=== PATIENT | female | born 1950 | race Hispanic/Latino ===

== ENCOUNTER → 2019-01-23 | Outpatient (CLI) | payer MEDICARE | END | disposition home or self-care (01) | LOC: OIH 14:48 | PROVIDERS: ATTEND Internal Medicine | DX: M06.4 Inflammatory polyarthropathy (principal) | CPT/HCPCS: 73130; 73630 ==

== ENCOUNTER 2020-08-10 06:10 | Day surgery (SDC) | payer OTHER ==
[2020-08-09 13:25] VITALS: BP 179/89
[2020-08-10] VITALS (16 sets, daily range): BP systolic 82–150; BP diastolic 48–94
[~2020-08-10] VITALS: Ht 157.5 cm; Wt 77.1 kg
[~2020-08-10 06:10] MED LIST: CARV3.12 PO; CERT400S SQ; DULO60CA44 PO; FLUT1AER IH; FOLI0.8T3 PO; GUAI-899 PO; LISI40TA9 PO; METF-445 PO; METH25VI11 IJ; NITR0.4T50 SL; TRAM100T40 PO; TRAZ-185 PO
[2020-08-10] MEDS ORDERED: CLINDAMYCIN IVPB 900MG/50ML 50 ML IV ONE (06:50)
[2020-08-10] MEDS ORDERED: NACL 0.9% 1000ML 1,000 ML IV ONE (06:51)
[2020-08-10] MEDS ORDERED: CEFAZOLIN SODIUM 1 GM VIAL IVP ONE (08:00)
[2020-08-10] MEDS ORDERED: PROPOFOL 10 MG/ML 20ML VIAL IV ONE (08:05)
[2020-08-10] MEDS ORDERED: MIDAZOLAM HCL 1 MG/ML 2ML VIAL ONE (08:05)
[2020-08-10] MEDS ORDERED: DEXAMETHASONE SOD PHOSPHATE 10MG/ML 1ML VIAL ONE (08:05)
[2020-08-10] MEDS ORDERED: ONDANSETRON 4MG INJ ONE ×2 (08:05→11:41)
[2020-08-10] MEDS ORDERED: FENTANYL CITRATE PF 50 MCG/1 ML 2ML VIAL ONE ×2 (08:05→10:23)
[2020-08-10] MEDS ORDERED: LIDOCAINE PF 100MG/5ML (2%) SYRINGE 5ML ONE (08:05)
[2020-08-10] MEDS ORDERED: MEPERIDINE-PF 25 MG/ML SYG ONE ×3 (09:37→11:28)
[2020-08-10] MEDS ORDERED: EPHEDRINE SULFATE 50 MG/ML AMPULE ONE (09:43)
[2020-08-10] MEDS ORDERED: PHENYLEPHRINE HCL 10 MG/ML 1ML VIAL IV ONE (09:51)
[2020-08-10] MEDS ORDERED: TRAM50TA4 PO (10:54)
[2020-08-10] MEDS ORDERED: CLIN300C3 PO (10:54)
== END 2020-08-10 12:55 | disposition home or self-care (01) ==
LOC: DAH 06:10
PROVIDERS: ATTEND Orthopaedic Surgery
DX: S83.232A Complex tear of medial meniscus, current injury, left knee, initial encounter (principal); M17.12 Unilateral primary osteoarthritis, left knee; J45.909 Unspecified asthma, uncomplicated; G47.30 Sleep apnea, unspecified; I10 Essential (primary) hypertension; I25.2 Old myocardial infarction; I25.10 Atherosclerotic heart disease of native coronary artery without angina pectoris; E11.51 Type 2 diabetes mellitus with diabetic peripheral angiopathy without gangrene; Z86.73 Personal history of transient ischemic attack (TIA), and cerebral infarction without residual deficits; Z79.01 Long term (current) use of anticoagulants; Z79.899 Other long term (current) drug therapy; X58.XXXA Exposure to other specified factors, initial encounter; Y93.89 Activity, other specified; Y92.89 Other specified places as the place of occurrence of the external cause; Y99.8 Other external cause status
CPT/HCPCS: 29881; 82948 ×2; 87635; A4215; A4216; A4221; A4222; A4223 ×2; A4510; A4600; A4606; A4649 ×2; A4663; A4930; A5120; A6223; C9803; J1100; J2001; J2175 ×3; J2250; J2370; J2405 ×2; J2704; J3010 ×2; J3490 ×2; J7030 ×3